=== PATIENT | female | born 1990 | race Two or more races ===

== ENCOUNTER 2017-03-10 16:48 | Emergency (ER) | payer BC, OTHER ==
[~2017-03-10] VITALS: Ht 157.5 cm; Wt 54.5 kg
[2017-03-10 16:54] VITALS: BP 120/64
[2017-03-10] MEDS ORDERED: LEVOTHYROXINE (16:54)
== END 2017-03-10 20:00 | disposition left against medical advice (07) ==
LOC: ER 16:48
DX: F41.9 Anxiety disorder, unspecified (principal); Z53.21 Procedure and treatment not carried out due to patient leaving prior to being seen by health care provider